=== PATIENT | male | born 1970 | race Caucasian/White ===

== ENCOUNTER 2016-06-02 09:27 | Emergency (ER) | payer SELFPAY ==
[~2016-06-02 09:27] MED LIST: ACET500CAP PO; ASAB PO; BLOOD PRESSURE MED? PO; COREG6 PO; CRESTOR20 MG PO; CRESTOR40 MG PO; GLUCOPHAGE1000 MG PO; GLUCPH PO; HUMALOG SC; INVOKANA100 MG PO; LANTUS SC; LIPITOR80 MG PO; LISINOPRIL40 MG PO; LOPID6 OR; LOPID6 PO; LORTAB10 PO; MAGOX4 PO; NORCO1 TAB PO; NORV10 PO; NORV5 PO; NOVOLOG SC; NOVOPEN SC; PEPTO BISMOL UD30 ML PO; PRIN20 OR; PRIN20 PO; PROMEGA PO; TRILIPIX135 MG PO; ZETIA PO; ZOCOR40 PO; ZOFRAN ODT4 MG PO; ZOFRAN4 PO
[2016-06-02 10:52] LABS: BASOPHILS 0.9 %; BASOPHILS ABSOLUTE 0.05 10/3/uL (0.0-0.16); EOSINOPHILS 2.3 %; EOSINOPHILS ABSOLUTE 0.13 10/3/uL (0.0-0.53); HEMATOCRIT 40.9 % (40.0-51.0); HEMOGLOBIN 15.4 g/dL (13.6-17.8); IMMATURE GRANULOCYTES 0.4 %; IMMATURE GRANULOCYTES ABSOLUTE 0.02 10/3/uL (0.0-0.11); LYMPHOCYTES 28.2 %; LYMPHOCYTES ABSOLUTE 1.61 10/3/uL (0.67-4.30); MEAN CORPUSCULAR HEMOGLOB 30.3 pg (26.0-34.0); MEAN CORPUSCULAR VOLUME 80.5 fL (80-100); MEAN PLATELET VOLUME 10.7 fL (9.2-13.0); MONOCYTES 7.7 %; MONOCYTES ABSOLUTE 0.44 10/3/uL (0.21-1.20); NEUTROPHILS 60.5 %; NEUTROPHILS ABSOLUTE 3.46 10/3/uL (2.02-8.40); PLATELET COUNT 253 10/3/uL (150-400); RBC DISTRIBUTION WIDTH 13.9 % (12.0-16.0); RED CELL COUNT 5.08 10/6/uL (4.7-6.1)
[2016-06-02 10:55] LABS: ER CBC TAT 0 Hrs 09 Mins; MANUAL DIFF NO %; MEAN CORPUS HGB CONC 37.7 g/dL (32.0-36.0); WHITE BLOOD CELLS 5.7 10/3/uL (4.5-10.5)
[2016-06-02 11:13] LABS: PLATELET ESTIMATE ADQ (ADEQUATE); RBC MORPHOLOGY NORM (NORMAL)
[2016-06-02 11:19] LABS: ASCORBIC ACID (UR NOT ORDER) NEG (NEG); BILIRUBIN, URINE NEGATIVE (NEG); ER URINALYSIS TAT 0 Hrs 10 Mins; KETONE, URINE TRACE MG/DL (NEG); LEUKOCYTE ESTERASE(NOT OR NEG (NEG); NITRITE (URINE) NEG (NEG); WBC (NOT ORDERED) (RFLEX) < 1 (0-5)
[2016-06-02 11:23] LABS: BUN (BLOOD UREA NITROGEN) 12 MG/DL (6-23); CHLORIDE, SERUM 99 MMOL/L (96-112); CO2 (CARBON DIOXIDE) 25 MMOL/L (24-34); CREATININE 0.89 MG/DL (0.70-1.30); GFR AFRICAN AMERICAN 121 ML/MIN (>=60); GFR NON AFRICAN AMERICAN 104 ML/MIN (>=60); POTASSIUM, SERUM 3.6 MMOL/L (3.5-5.3); SGOT(AST) 14 U/L (5-40); SGPT(ALT) 26 U/L (5-65); TOTAL BILIRUBIN 0.4 MG/DL (0-1.2)
[2016-06-02 11:25] LABS: A/G RATIO 0.8 (0.7-1.9); ALBUMIN 3.1 G/DL (3.5-5.0); ALKALINE PHOSPHATASE 79 U/L (45-117); GLOBULIN 3.9 G/DL (2.5-4.1); GLUCOSE, SERUM 337 MG/DL (60-99)
[2016-06-02 11:26] LABS: SODIUM, SERUM 136 MMOL/L (135-148)
[2016-11-12] MEDS ORDERED: NEUR800 PO (11:59)
[2016-11-12] MEDS ORDERED: PRILO PO (11:59)
[2016-11-12] MEDS ORDERED: HCTZ25B PO (11:59)
[2016-11-12] MEDS ORDERED: NORCO1 TA1 PO (12:00)
[2016-11-12] MEDS ORDERED: LIPITOR80 MG PO (12:00)
[2016-11-12] MEDS ORDERED: LEVSINTAB PO (12:01)
[2016-11-12] MEDS ORDERED: ULTRAM50 PO (12:01)
[2016-11-12] MEDS ORDERED: PR25 PO (12:01)
[2016-11-12] MEDS ORDERED: SUCR PO (12:02)
[2016-11-25] MEDS ORDERED: LANTUS SC (18:28)
[2016-11-25] MEDS ORDERED: NOVOLOG SC (18:29)
[2016-11-25] MEDS ORDERED: NEUR800 PO (18:31)
[2016-11-25] MEDS ORDERED: NORV10 PO (18:31)
[2016-11-25] MEDS ORDERED: LIPITOR80 MG PO (18:31)
== END 2016-06-02 15:40 | disposition home or self-care (01) ==
LOC: ER 09:27
PROVIDERS: Emergency Medicine
DX: R10.10 Upper abdominal pain, unspecified (principal); G89.29 Other chronic pain; E11.9 Type 2 diabetes mellitus without complications; I10 Essential (primary) hypertension; Z88.8 Allergy status to other drugs, medicaments and biological substances; Z79.899 Other long term (current) drug therapy; Z79.4 Long term (current) use of insulin; Z79.84 Long term (current) use of oral hypoglycemic drugs
CPT/HCPCS: 80053; 81001; 83690; 85025; 96374; 96375; 99284; A9270-GY; J1980; J2405